=== PATIENT | male | born 1975 | race Caucasian/White ===

== ENCOUNTER 2016-11-27 01:12 | Emergency (ER) | payer OTHER ==
[~2016-11-27] VITALS: Ht 172.7 cm; Wt 93.3 kg
[~2016-11-27 01:12] MED LIST: CEPH500C PO; INSPMPHMLG; LISI5TAB3 PO; LOVA40TA4 PO; LRT5 PO
[2016-11-27 01:15] VITALS: TEMP 36.7; Ht 172.7 cm; Wt 93.3 kg
[2016-11-27] MEDS ORDERED: INSULIN GLARGINE SOLOSTAR 100 UNITS/ML 3 ML PEN SC STA (01:30)
--- NOTE | 2016-11-27 01:41 | EMERGENCY ROOM VISIT NOTE ---
History Report prepared by Jane: Swapnil Lynch Under the Supervision of: Dr. Hayes Herrera M.D. First contact with patient: 01:24 Chief Complaint: REFERRED BY DOCTOR Stated Complaint: INSULIN PUMP History of Present Illness The patient is a 41 year old male who presents to the Emergency Room for insulin after his insulin pump earlier tonight. The patient tried taking the battery out, which still has not worked. A new pump is being sent to the patient. which he will be receiving tomorrow. The patient is here for insulin to get him through the morning when he can see his PCP. The patient is otherwise feeling good. He denies fevers, rhinorrhea, or cough. Source of History: patient Onset: tonight Position: other (insulin pump) Quality: other (insulin pump malfunction) Associated Symptoms: No cough, No fevers Review of Systems See HPI for pertinent positives & negatives. A total of 6 systems reviewed and were otherwise negative. Past Medical & Surgical Medical Problems: (1) IDDM (insulin dependent diabetes mellitus) Family History No pertinent family history Social History Smoking Status: Never Smoker Current/Historical Medications Scheduled Cephalexin Monohydrate (Keflex), 500 MG PO QID Hydrocodone/Acetaminophen 5MG/500MG (Vicodin 5MG/500MG), 1 TAB PO Q4-6HR PRN Lisinopril (Zestril), 5 MG PO DAILY Lovastatin (Mevacor), 40 MG PO DAILY Miscellaneous Medications Insulin Human Lispro (Insulin Humalog Pump ) Allergies Coded Allergies: No Known Allergies (Verified Allergy, Unknown, 09/15/05) Physical Exam Vital Signs Date Time Temp Pulse Resp B/P Pulse Ox O2 Delivery O2 Flow Rate FiO2 11/27/16 01:54 82 20 151/98 97 11/27/16 01:15 36.7 90 18 132/91 97 Room Air Physical Exam GENERAL: Patient is well appearing and in no acute distress. EXTREMITIES: Normal motion all extremities, no cyanosis, no edema. NEUROLOGIC: Alert and oriented, no acute motor or sensory deficits, no focal weakness, cranial nerves grossly intact. Medical Decision & Procedures ED Course 0123: The patient was evaluated in room B11b. A complete history and physical exam was performed. 0130: Insulin Glargine 20 unit SC. 0145: Spoke with the patient. He is ready for discharge. Medical Decision 41 yr old male arrives requesting long acting Lantus insulin as his Medtronic Insulin pump is broken. Plenty of fast acting insulin at home. He is well prepared to monitor glucose at home. No other complaints nor requests. Denies infectious symptoms. Impression Primary Impression: Mechanical breakdown of insulin pump Scribe Attestation The scribe's documentation has been prepared under my direction and personally reviewed by me in its entirety. I confirm that the note above accurately reflects all work, treatment, procedures, and medical decision making performed by me. Departure Information Dispostion Home / Self-Care Referrals Pro,Med Wallace M.D. (PCP) Forms HOME CARE DOCUMENTATION FORM, IMPORTANT VISIT INFORMATION Patient Instructions A Signature Page, [facility] Additional Instructions Monitor your blood sugars closely over next 12-24 hours. Return if concerns or other issues.
[2016-11-27 01:54] VITALS: BP 151/98; PULSE 82; O2SAT 97
== END 2016-11-27 01:56 | disposition home or self-care (01) ==
LOC: C.EDB 01:13
DX: T85.614A Breakdown (mechanical) of insulin pump, initial encounter (principal); Y80.1 Therapeutic (nonsurgical) and rehabilitative physical medicine devices associated with adverse incidents; Z79.4 Long term (current) use of insulin; E11.9 Type 2 diabetes mellitus without complications; Z79.899 Other long term (current) drug therapy

== ENCOUNTER → 2017-12-08 | Outpatient (CLI) | payer OTHER ==
[2017-12-08 15:59] LABS: HEMOGLOBIN A1C 10.9 % (4.5-5.6)
[2017-12-08 16:09] LABS: ALBUMIN 3.6 gm/dl (3.4-5.0); ALT/SGPT 29 U/L (12-78); AST/SGOT 12 U/L (15-37); BLOOD UREA NITROGEN 22 mg/dl (7-18); CALCIUM 8.8 mg/dl (8.5-10.1); CARBON DIOXIDE 28 mmol/L (21-32); CREATININE 1.27 mg/dl (0.60-1.40); GLUCOSE 134 mg/dl (70-99); POTASSIUM 3.7 mmol/L (3.5-5.1); SODIUM 140 mmol/L (136-145)
[2017-12-08 16:20] LABS: ALKALINE PHOSPHATASE 82 U/L (45-117); CHOLESTEROL 265 mg/dl (0-200); TOTAL PROTEIN 7.2 gm/dl (6.4-8.2)
== END | disposition home or self-care (01) ==
LOC: C.LAB1850 14:14
PROVIDERS: ATTEND Internal Medicine Endocrinology, Diabetes & Metabolism
DX: E03.9 Hypothyroidism, unspecified (principal); E06.3 Autoimmune thyroiditis; E78.5 Hyperlipidemia, unspecified; R80.9 Proteinuria, unspecified; I10 Essential (primary) hypertension; E66.9 Obesity, unspecified; E11.9 Type 2 diabetes mellitus without complications; E11.21 Type 2 diabetes mellitus with diabetic nephropathy; E55.9 Vitamin D deficiency, unspecified

== ENCOUNTER 2024-12-29 08:52 | Inpatient (IN) ==
--- NOTE | 2024-12-16 14:39 | Anesthesiology Consultation ---
Date of Service December 16, 2024 History Surgery Operation Date: 12/29/24 09:10 Proposed Procedures p Esophagogastroduodenoscopy Dr. Dimitri Mosley MD Height/Weight Height: 5 ft 8 in Weight: 97.522 kg Allergies Allergy/AdvReac Type Severity Reaction Status Date / Time No Known Allergies Allergy Unknown Verified 12/02/24 14:37 Medications Home Medications Medication Instructions Recorded Confirmed Last Taken colchicine 0.6 mg capsule 0.6 mg PO BID PRN Gout #60 caps 08/15/20 12/16/24 Unknown aspirin 81 mg tablet,delayed 81 mg PO QAM 01/24/23 12/16/24 05/04/23 release fexofenadine 180 mg tablet 180 mg PO QAM 01/24/23 12/16/24 05/04/23 blood sugar diagnostic (Accu-Chek #200 ea 08/03/24 12/02/24 Unknown Guide test strips) blood-glucose sensor (Dexcom G7 #9 ea 08/03/24 12/02/24 Unknown Sensor device) calcitriol 0.25 mcg capsule 0.25 mcg PO DAILY #90 caps 08/03/24 12/16/24 Unknown insulin aspart U-100 100 unit/mL 200 unit (2 mL) continuous 08/03/24 12/16/24 Unknown subcutaneous solution (Novolog subcutaneous infusion DAILY #180 mL U-100 Insulin aspart) lisinopril 40 mg tablet 40 mg PO DAILY #90 tabs 08/03/24 12/16/24 Unknown rosuvastatin 40 mg tablet 40 mg PO DAILY #90 tabs 08/03/24 12/16/24 Unknown spironolactone 50 mg tablet 50 mg PO DAILY #90 tabs 08/03/24 12/16/24 Unknown (Aldactone) insulin lispro 100 unit/mL 200 unit (2 mL) continuous 10/04/24 12/16/24 Unknown subcutaneous solution (Humalog subcutaneous infusion DAILY #180 mL U-100 Insulin) amlodipine 5 mg tablet 5 mg PO DAILY #90 tabs 11/22/24 12/16/24 Unknown bempedoic acid 180 mg tablet 180 mg PO DAILY #90 tabs 11/22/24 12/16/24 Unknown (Nexletol) levothyroxine 125 mcg tablet 125 mcg PO DAILY #90 tabs 11/22/24 12/16/24 Unknown Past Medical History Medical History (Updated 12/16/24 @ 11:33 by Ellie Garcia, RN) CKD (chronic kidney disease), stage III Diabetic retinopathy Gout Dyslipidemia Hypothyroidism HTN (hypertension) Depression Diabetic neuropathy Vitamin D deficiency Diabetes CAD (coronary artery disease) CAC 99, all LAD Male erectile disorder of organic origin Seasonal allergies Hx of undescended testicle Snores no sleep study Past Family History Family History Other Diabetes Hypertension Denies family history of Ovarian cancer Prostate cancer Myocardial infarction Breast cancer Colorectal cancer Past Surgical History Surgical History Hx of tympanostomy tubes Hx of wisdom tooth extraction Social History Smoking Status: Never smoker Do You Dip or Chew Tobacco: No Hx Alcohol Use: No Hx Substance Use: No substance use type: does not use
[2024-12-29] MEDS: SODIUM CHLORIDE 0.9% 500 ML IV SCH (09:14)
--- NOTE | 2024-12-29 09:35 | History & Physical Report ---
Date of Service December 29, 2024 Assessment & Plan (1) Early satiety: Plan: Patient complains of abdominal fullness early satiety. There is a fair amount of carbonated beverage intake sometimes up to 5 to 6 cans. This could contribute to abdominal fullness and distention. Recommend trial off. Patient is lactose intolerant and avoids lactose. There is an increased risk of celiac disease and type 1 diabetes. Will evaluate the duodenum for evidence of celiac today. The concern here is for gastroparesis in this gentleman with peripheral neuropathy. We will evaluate for retained vegetable material in the stomach today. He does not vomit. Risks of the procedure including bleeding perforation and aspiration discussed. Informed consent obtained. (2) Diabetic neuropathy: (3) Diabetes type 1, controlled: History of Present Illness Chief Complaint: Early satiety Primary Care Provider: Marcia Mckeon PA-C Type I diabetic. With peripheral neuropathy. Notes early satiety fullness. No vomiting. Concern for gastroparesis. No unexplained weight loss. Patient currently on no promotility agents. He does not take any GLP-1 agonist. Allergies Allergy/AdvReac Type Severity Reaction Status Date / Time No Known Allergies Allergy Unknown Verified 12/29/24 09:00 Home Medications Medication Instructions Recorded Confirmed Type colchicine 0.6 mg capsule 0.6 mg PO BID PRN Gout #60 caps 08/15/20 12/29/24 Rx aspirin 81 mg tablet,delayed 81 mg PO QAM 01/24/23 12/29/24 History release fexofenadine 180 mg tablet 180 mg PO QAM 01/24/23 12/29/24 History blood sugar diagnostic (Accu-Chek #200 ea 08/03/24 12/02/24 Rx Guide test strips) blood-glucose sensor (Dexcom G7 #9 ea 08/03/24 12/02/24 Rx Sensor device) calcitriol 0.25 mcg capsule 0.25 mcg PO DAILY #90 caps 08/03/24 12/29/24 Rx insulin aspart U-100 100 unit/mL 200 unit (2 mL) continuous 08/03/24 12/29/24 Rx subcutaneous solution (Novolog subcutaneous infusion DAILY #180 mL U-100 Insulin aspart) lisinopril 40 mg tablet 40 mg PO DAILY #90 tabs 08/03/24 12/29/24 Rx rosuvastatin 40 mg tablet 40 mg PO DAILY #90 tabs 08/03/24 12/29/24 Rx spironolactone 50 mg tablet 50 mg PO DAILY #90 tabs 08/03/24 12/29/24 Rx (Aldactone) insulin lispro 100 unit/mL 200 unit (2 mL) continuous 10/04/24 12/29/24 Rx subcutaneous solution (Humalog subcutaneous infusion DAILY #180 mL U-100 Insulin) amlodipine 5 mg tablet 5 mg PO DAILY #90 tabs 11/22/24 12/29/24 Rx bempedoic acid 180 mg tablet 180 mg PO DAILY #90 tabs 11/22/24 12/29/24 Rx (Nexletol) levothyroxine 125 mcg tablet 125 mcg PO DAILY #90 tabs 11/22/24 12/29/24 Rx Past Med/Surg History Problem List (Updated 12/29/24 @ 09:34 by Jian Mosley MD) Early satiety CAD (coronary atherosclerotic disease) (~2023) CAC 99, all LAD Diabetes type 1, controlled Loss of protective sensation of skin of foot Proliferative diabetic retinopathy associated with type 1 diabetes mellitus Chronic renal disease, stage 3, moderately decreased glomerular filtration rate (GFR) between 30-59 mL/min/1.73 square meter Frozen shoulder (Chronic) Dysesthesia (Chronic) Diabetic peripheral neuropathy associated with type 1 diabetes mellitus (Chronic) Gout (Chronic) Dyslipidemia (Chronic) Hypothyroidism (Chronic) Hypertension (Chronic) Depression (Chronic) Albuminuria (Chronic) Diabetic nephropathy associated with type 1 diabetes mellitus (Chronic) Vitamin D deficiency (Chronic) Medical History (Updated 12/29/24 @ 09:34 by Jian Mosley MD) CKD (chronic kidney disease), stage III Diabetic retinopathy Gout Dyslipidemia Hypothyroidism HTN (hypertension) Depression Diabetic neuropathy Vitamin D deficiency Diabetes CAD (coronary artery disease) CAC 99, all LAD Male erectile disorder of organic origin Seasonal allergies Hx of undescended testicle Snores no sleep study Surgical History Hx of tympanostomy tubes Hx of wisdom tooth extraction Family History Other Diabetes Hypertension Denies family history of Ovarian cancer Prostate cancer Myocardial infarction Breast cancer Colorectal cancer Social History Smoking Status: Never smoker Second Hand Exposure: No; Do You Dip or Chew Tobacco: No; Tobacco Cessation Education Requested by Patient: No Hx Alcohol Use: No Hx Substance Use: No Preferred Language: Turkmen Communication Ability: Effective Visual Impairment: No Limitations Hearing Ability: Normal Social Worker Delinquency Prevention Required: No Beliefs That Will Affect Care: None marital status: Current Living Situation: Spouse current occupational status: employed current occupation: building maintenance engineer Other Information That Helps Us Care for You: No Feels Safe at Home: Yes Safety Concerns: Feels Safe At This Time Childhood Exposure to Second-Hand Smoke: No Dental Care, Regularly: Yes Physical Activity Frequency: 1-2 Times per Week Seatbelt Use: always Sunscreen Use: Yes Assistive Devices: Glasses Review of Systems Denies fevers chills night sweats Respiratory cardiovascular negative GI as mentioned history presenting Physical Exam Physical Exam: Pleasant 49-year-old gentleman. Alert and orientated Chest and heart sounds per anesthesia Abdomen protuberant but benign. Results & Data Vital Signs (Past 12 Hours) Vital Signs Temp Pulse Resp BP Pulse Ox O2 Del Method 12/29/24 09:05 36.1 C L 70 16 151/83 H 97 Room Air Coding Level of Care Code None Diagnoses Early satiety R68.81 Diabetic neuropathy E11.40 Diabetes type 1, controlled E10.9
[2024-12-29] MEDS ORDERED: PANTOPRAZOLE BOLUS/DRIP IV STA (10:04)
--- NOTE | 2024-12-29 10:13 | GI REPORT ---
[facility] Patient: FAVIO BRANCH : 1975 Sex at : Male Age: 49 Years Procedure: Upper GI endoscopy Date: 12/29/2024 Attending Physician: Jian Mosley MD Referring MD: Marcia Mckeon Indications: - Early satiety, possible gastroparesis Medications: - Monitored Anesthesia Care Complications: - No immediate complications. Estimated Blood Loss: - Estimated blood loss was minimal. Procedure: - The EGD scope was introduced through the mouth and advanced to the second part of the duodenum. - The upper GI endoscopy was accomplished without difficulty. - The patient tolerated the procedure well. Findings: - The examined esophagus was normal. - One oozing cratered gastric ulcer with a visible vessel was found in the gastric antrum. The lesion was 30 mm in largest dimension. Surrounding ulcer injected with 1 in 10,000 epinephrine. The visible vessel lavage with slow continued ooze. Treated with BiCap coagulation with achievement of hemostasis ulcer edges then biopsied x 5 for histology - The examined duodenum was normal. Impression: - Normal esophagus. - Oozing gastric ulcer with a visible vessel. - Surrounding ulcer injected with 1 in 10,000 epinephrine. The visible vessel lavage with slow continued ooze. Treated with BiCap coagulation with achievement of hemostasis ulcer edges then biopsied x 5 for histology - Normal examined duodenum. - No specimens collected. Recommendation: - Await pathology results. - IV Protonix with drip. - 23-hour observation post coagulation of visible vessel and bleeding. Reviewed with hospitalist service. Patient has numerous comorbidities including type 1 diabetes which will require hospitalist services. Procedure Code(s): - 07794, Esophagogastroduodenoscopy, flexible, transoral; diagnostic, including collection of specimen(s) by brushing or washing, when performed (separate procedure) Diagnosis Code(s): - K25.4, Chronic or unspecified gastric ulcer with hemorrhage CPT(R) - 202 copyright [employer]. All Rights Reserved. The CPT codes, CCI edits and ICD codes generated are intended as suggestions and were generated based on input data. These codes are preliminary and upon director food and beverage review may be revised to meet current compliance and payer requirements. The provider is responsible for the final determination of appropriate codes, and modifiers. Jian Mosley MD This document has been electronically signed. Note Initiated:12/29/2024 Note Completed:12/29/2024 10:12 AM [id number]
--- NOTE | 2024-12-29 10:16 | Anesthesiology Progress Note ---
Date of Service December 29, 2024 Anesthesia Post Procedure Vital Signs Vital Signs: Temp Pulse Resp BP Pulse Ox O2 Del Method 12/29/24 09:05 36.1 C L 70 16 151/83 H 97 Room Air Transfer of Care Handoff Completed per policy Notes Mental Status: alert / awake / arousable and participated in evaluation Patient Amnestic to Procedure: Yes Nausea / Vomiting: adequately controlled Pain: adequately controlled Airway Patency, RR, SpO2: stable & adequate BP & HR: stable & adequate Hydration State: stable & adequate Anesthetic Complications: no major complications apparent and Pt Satisfied with anesthetic care
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
[2024-12-29] MEDS: PANTOprazole 80 MG in DEXTROSE 5% 100 ML IV ONE (10:51)
[2024-12-29] MEDS: PANTOprazole 40 MG in DEXTROSE 5% MINI-B 100 ML IV SCH (11:09)
[2024-12-29] MEDS ORDERED: INSULIN, Rapid-Acting PUMP SC SCH (12:02)
[2024-12-29] MEDS ORDERED: GLUCAGON FOR INJ 1 MG VIAL SQ PRN (12:02)
[2024-12-29] MEDS ORDERED: GLUCOSE 10 TAB/TUBE PO PRN (12:02)
[2024-12-29] MEDS ORDERED: GLUCOSE 40% GEL 15 GM TUBE PO PRN (12:02)
[2024-12-29] MEDS ORDERED: CARBOHYDRATES FOR HYPOGLYCEMIA PO PRN (12:02)
[2024-12-29] MEDS ORDERED: DEXTROSE 50% 50 ML SYRINGE IV PRN (12:02)
[2024-12-29] MEDS ORDERED: INSULIN ASPART 100 UNITS/ML VIAL SC PRN (12:02)
[2024-12-29 12:24] LABS: Basophils # (auto) 0.03 K/uL (0.00-0.20); Basophils % (auto) 0.5 %; Eosinophils # (auto) 0.17 K/uL (0.00-0.50); Hematocrit (blood only) 34.2 % (42.0-52.0); Hemoglobin 11.5 g/dl (14.0-18.0); Immature Granulocytes # (auto) 0.03 K/uL (0.01-0.20); Immature Granulocytes % (auto) 0.5 %; Lymphocytes # (auto) 1.33 K/uL (1.20-3.40); Lymphocytes % (auto) 23.5 %; Mean Corpuscular Hemoglobin 28.6 pg (25.0-34.0); Mean Corpuscular Hgb Conc 33.6 g/dL (32.0-36.0); Mean Corpuscular Volume 85.1 fL (80.0-100.0); Mean Platelet Volume 8.7 fL (9.4-12.4); Monocytes # (auto) 0.42 K/uL (0.11-0.59); Monocytes % (auto) 7.4 %; Neutrophils # (auto) 3.68 K/uL (1.40-6.50); Neutrophils % (auto) 65.1 %; Platelet Count 212 K/uL (130-400); RDW Coefficient of Variation 12.5 % (11.5-14.5); RDW Standard Deviation 38.5 fL (36.4-46.3); Red Blood Count 4.02 M/uL (4.70-6.10); White Blood Count 5.66 K/ul (4.8-10.8)
[2024-12-29] MEDS: LIDOCAINE 2% 2 ML VIAL/AMP(20MG/ML) INFIL ONE (12:31)
[2024-12-29] MEDS: PROPOFOL IV EMULSION 10 MG/ML 20 ML VIAL IV ONE ×2 (12:31→12:32)
[2024-12-29 12:40] LABS: Albumin Globulin Ratio 1.4 (0.9-2); Bilirubin,Total 0.6 mg/dl (0.2-1.0); Calcium 9.3 mg/dl (8.6-10.3); Creatinine Clr Calc Pharmacy 85.1 ml/min; Globulin 2.8 gm/dl (2.5-4.0); Potassium 4.3 mmol/L (3.5-5.1); Total Protein 6.8 gm/dl (6.0-8.3)
[2024-12-29 12:46] LABS: Partial Thromboplastin Ratio 1.3; Partial Thromboplastin Time 34 Seconds (21-31); Prothrombin Time 10.9 Seconds (9.0-12.0)
--- NOTE | 2024-12-29 15:42 | Communication Note ---
Date of Service: December 29, 2024 Follow-up post endoscopy. Patient denies any abdominal pain. There is been no nausea vomiting or passage of black stools. Patient will be on clears. If his hemoglobin stable tomorrow can advance diet discharge home. Should go on twice daily PPI for at least a month. Then can go to 40 mg of Protonix per day. Should have a repeat EGD in 3 months. I believe the ulcer is related to ibuprofen. Check for H. pylori. Neoplasia less likely.
[2024-12-29] MEDS: ROSUVASTATIN CALCIUM 20 MG TAB PO SCH (20:23)
[2024-12-29 22:13] LABS: Hematocrit (blood only) 33.6 % (42.0-52.0); Hemoglobin 11.4 g/dl (14.0-18.0); Mean Corpuscular Hemoglobin 28.1 pg (25.0-34.0); Mean Corpuscular Hgb Conc 33.9 g/dL (32.0-36.0); Mean Platelet Volume 8.7 fL (9.4-12.4); Platelet Count 208 K/uL (130-400); RDW Coefficient of Variation 12.8 % (11.5-14.5); RDW Standard Deviation 38.5 fL (36.4-46.3); Red Blood Count 4.05 M/uL (4.70-6.10); White Blood Count 5.44 K/ul (4.8-10.8)
[2024-12-29 23:58] VITALS: PULSE 69; RESP 15
[2024-12-30 05:45] VITALS: BP 115/71; TEMP 97.7; O2SAT 97
[2024-12-30] MEDS: LEVOTHYROXINE SODIUM 125 MCG TABLET PO SCH (05:45)
[2024-12-30 06:37] LABS: Basophils # (auto) 0.03 K/uL (0.00-0.20); Basophils % (auto) 0.5 %; Eosinophils # (auto) 0.16 K/uL (0.00-0.50); Eosinophils % (auto) 2.8 %; Hematocrit (blood only) 34.9 % (42.0-52.0); Hemoglobin 11.7 g/dl (14.0-18.0); Immature Granulocytes # (auto) 0.02 K/uL (0.01-0.20); Immature Granulocytes % (auto) 0.4 %; Lymphocytes # (auto) 1.37 K/uL (1.20-3.40); Lymphocytes % (auto) 24.1 %; Mean Corpuscular Hgb Conc 33.5 g/dL (32.0-36.0); Mean Corpuscular Volume 83.5 fL (80.0-100.0); Mean Platelet Volume 8.5 fL (9.4-12.4); Monocytes # (auto) 0.49 K/uL (0.11-0.59); Monocytes % (auto) 8.6 %; Neutrophils # (auto) 3.61 K/uL (1.40-6.50); Neutrophils % (auto) 63.6 %; Platelet Count 200 K/uL (130-400); RDW Coefficient of Variation 12.8 % (11.5-14.5); RDW Standard Deviation 38.5 fL (36.4-46.3); Red Blood Count 4.18 M/uL (4.70-6.10); White Blood Count 5.68 K/ul (4.8-10.8)
--- NOTE | 2024-12-30 06:48 | Communication Note ---
Date of Service: December 30, 2024 counts stable,bun ok. nursing notes no report bleeding. advance diet, home today on bid protonix x 2 weeks then daily. plan repeat egd 3 months. avoid nsaids
[2024-12-30 06:55] LABS: BUN Creatinine Ratio 14.6 (10-20); Calcium 9.3 mg/dl (8.6-10.3); Creatinine Clr Calc Pharmacy 74.6 ml/min; Potassium 3.8 mmol/L (3.5-5.1)
[2024-12-30] MEDS ORDERED: Nursing to Pharmacy Communication SCH (08:45)
[2024-12-30] MEDS ORDERED: lisinopril 40 MG TAB PO SCH ×2 (09:00→21:00)
[2024-12-30] MEDS ORDERED: SPIRONOLACTONE 25 MG TAB PO SCH ×2 (09:00→21:00)
[2024-12-30] MEDS ORDERED: amLODIPine BESYLATE 5 MG TAB PO SCH ×2 (09:00→21:00)
--- NOTE | 2024-12-30 09:43 | Discharge Summary ---
Discharge Summary Date of Service December 30, 2024 Principal Dx & Hospital Course #1 = Principal Diagnosis (1) Gastric ulcer: (2) Diabetes type 1, controlled: (3) Hypertension: (4) CAD (coronary atherosclerotic disease): Plan Pankaj is a 49M with a PMHx of DMT1, hypothyroidism, CK#, HTN, Depression and CAD who presented the hospital for elective EGD for gastroparesis workup. During this he was found to have an oozing gastric ulcer with a visible vessel requiring hemostasis. Patient w/ brown BM 12/30. #Gastric Ulcer Found on EGD. S/p BiCap coagulation, 5 biopsies pending. GI consulted - okay for advance to solid diet, PPI BID, okay to discharge home 12/30. Hgb stable 11.5 w/ repeat on 12/30 of 11.7 patient requires close follow up w/ GI and follow up EGD in 3 months. Avoid NSAIDs in future, patient was reportedly using ibuprofen. #DMT1 Continue insulin pump on discharge. #HTN/CAD Continue Amlodipine, rosuvastatin, spironolactone, lisinopril, and ASA hypothyroid - continue Synthroid Discharged home 12/30. Admission HPI Per Admitting Provider Pankaj is a 49M with a PMHx of DMT1, hypothroidism, CK#, HTN, Depression and CAD who presented the hospital for elective EGD for gastroparesis workup. During this he was found to have an oozing gastric ulcer with a visible vessel. He has not noticed any blood stools or black stools. No bowel changes, but does report having to strain more for bowel movements. Reports chronic fatigue without any acute worsening. He does report some epigastric abdominal pain but no acute worsening. Discharge Exam Constitutional WD/WN, vitals as above Eyes PERRL, conjunctivae normal, anicteric sclerae Respiratory breathing unlabored Cardiovascular well perfused Psychiatric A+Ox3, euthymic affect Discharge Plan Discharge Items Patient Disposition: Home - Self-Care Reason For Visit: GI BLEED Discharge Diagnosis: Gastric Ulcer Activity: Resume your previous activity Non-emergency contact: Primary Care Provider and Rotary Shear Operator Call non-emergency contact if: you have any medication questions and your symptoms worsen Follow-up/Referrals: Marcia Mckeon PA-C [Primary Care Provider] - 01/07/25 3:00 pm Diet: Carb Count or DM1 Addtl Attending Provider Instructions: Mr. Lou, You were recently hospitalized following your EGD due to a bleeding gastric ulcer in your stomach. You were treated appropriately and your blood counts have remained stable. Please see recommendations below regarding your discharge. 1. Please take Pantoprazole 40mg twice daily. Your first dose at home will be this evening 12/30. This medication should be continued until you are seen by your GI doctor in follow up. 2. Please avoid further use of NSAIDs as this contributed to your ulcer formation. 3. Please follow up in the GI office at an appointment to be scheduled. 4. Please follow up with your PCP within 1-2 weeks of discharge. If you develop any black tarry stools, severe abdominal pain, dizziness, or shortness of breath please report back to the ER for further care. Sincerely, Donna Blackmon PA-C Pending Studies at Discharge: Yes Studies:: biopsies from endoscopy Stand-Alone Forms: My [facility] [employer], Smoking Cessation Medications and DC Order Prescriptions: New pantoprazole 40 mg tablet,delayed release (DR/EC) 40 mg PO BID Qty: 60 0RF Continued colchicine 0.6 mg capsule 0.6 mg PO BID PRN (Reason: Gout) Qty: 60 0RF insulin lispro [Humalog U-100 Insulin] 100 unit/mL solution 200 unit continuous subcutaneous infusion DAILY Qty: 180 1RF Nexletol 180 mg tablet 180 mg PO DAILY Qty: 90 1RF amlodipine 5 mg tablet 5 mg PO DAILY Qty: 90 1RF levothyroxine 125 mcg tablet 125 mcg PO DAILY Qty: 90 1RF insulin aspart U-100 [Novolog U-100 Insulin aspart] 100 unit/mL solution 200 unit continuous subcutaneous infusion DAILY Qty: 180 3RF calcitriol 0.25 mcg capsule 0.25 mcg PO DAILY Qty: 90 3RF lisinopril 40 mg tablet 40 mg PO DAILY Qty: 90 3RF rosuvastatin 40 mg tablet 40 mg PO DAILY Qty: 90 3RF spironolactone [Aldactone] 50 mg tablet 50 mg PO DAILY Qty: 90 3RF aspirin 81 mg Tablet,Delayed Release (Dr/Ec) 81 mg PO QAM fexofenadine 180 mg Tablet 180 mg PO QAM No Action (DME) Accu-Chek Guide test strips Strip See Rx Instructions .Route Qty: 200 3RF Rx Instructions: test blood sugar bid (DME) Dexcom G7 Sensor Device See Rx Instructions .Route Qty: 9 3RF Rx Instructions: Change sensor every 10 days Discharge Orders: Discharge Order (Routine); Ordered 12/30/24 Ordered By: Donna Bach/Other Patient Handouts: Understanding Gastric Ulcers Admission Data Admit Date/Time: 12/29/24 10:17 Attending Provider: Richar Harvey Admit Provider: Pankaj Segal Primary Care Provider: Marcia Mckeon Other Providers: Jian Mosley Other Interventions: Discharge Summary Assessment (RN) Last Done: 12/30/24 09:56 Hospital Stay Data Consultations 12/29/24 10:58 Consult Gastroenterology Routine Procedures Performed Operation Date: 12/29/24 09:25 Actual Procedures p EGD Hemostasis - Jian Mosley MD s EGD Biopsy Cytology - Jian Mosley MD Pending Results Patient Have Any Pending Studies at Discharge: Yes Discharge Instructions Given to Patient (Per Discharging Provider) Mr. Lou, Tien were recently hospitalized following your EGD due to a bleeding gastric ulcer in your stomach. You were treated appropriately and your blood counts have remained stable. Please see recommendations below regarding your discharge. 1. Please take Pantoprazole 40mg twice daily. Your first dose at home will be this evening 12/30. This medication should be continued until you are seen by your GI doctor in follow up. 2. Please avoid further use of NSAIDs as this contributed to your ulcer formation. 3. Please follow up in the GI office at an appointment to be scheduled. 4. Please follow up with your PCP within 1-2 weeks of discharge. If you develop any black tarry stools, severe abdominal pain, dizziness, or shortness of breath please report back to the ER for further care. Sincerely, Donna Blackmon PA-C Total Time Total Time Spent Total Time Spent (In Minutes): 40 Total Time Includes: Examination of the Patient, Discharge Planning and Medication Reconciliation Coding Level of Care Code 47047 INP/OBS DISCH >30 MIN Diagnoses Gastric ulcer K25.9 Diabetes type 1, controlled E10.9 Hypertension I10 CAD (coronary atherosclerotic disease) I25.10
--- NOTE | 2024-12-30 11:35 | Gastrointestinal Consultation ---
Date of Consultation December 30, 2024 Assessment & Plan (1) Gastric ulcer: -Continue Protonix 40 mg BID on discharge -Diet advanced while hospitalized -Will need outpatient follow-up in the clinic -Avoid NSAIDs History of Present Illness Reason for Consultation: "bleeding ulcer" Requesting Physician: Donna Blackmon Attending Physician: Richar Harvey History of Present Illness Patient is a 49 yo male who underwent an EGD as an outpatient on 12/29/24 for epigastric pain. He was found to have an actively bleeding gastric ulcer. He was admitted on a PPI drip overnight. He has not had melena. His H/H is 11.7/34.9. BUN 20. Cr 1.37. He tolerated an advanced diet this AM. Allergies Allergy/AdvReac Type Severity Reaction Status Date / Time No Known Allergies Allergy Unknown Verified 12/29/24 09:00 Home Medications Medication Instructions Recorded Confirmed Type colchicine 0.6 mg capsule 0.6 mg PO BID PRN Gout #60 caps 08/15/20 12/29/24 Rx aspirin 81 mg tablet,delayed 81 mg PO QAM 01/24/23 12/29/24 History release fexofenadine 180 mg tablet 180 mg PO QAM 01/24/23 12/29/24 History blood sugar diagnostic (Accu-Chek #200 ea 08/03/24 12/02/24 Rx Guide test strips) blood-glucose sensor (Xoomsys G7 #9 ea 08/03/24 12/02/24 Rx Sensor device) calcitriol 0.25 mcg capsule 0.25 mcg PO DAILY #90 caps 08/03/24 12/29/24 Rx lisinopril 40 mg tablet 40 mg PO DAILY #90 tabs 08/03/24 12/29/24 Rx rosuvastatin 40 mg tablet 40 mg PO DAILY #90 tabs 08/03/24 12/29/24 Rx spironolactone 50 mg tablet 50 mg PO DAILY #90 tabs 08/03/24 12/29/24 Rx (Aldactone) insulin lispro 100 unit/mL 200 unit (2 mL) continuous 10/04/24 12/29/24 Rx subcutaneous solution (Humalog subcutaneous infusion DAILY #180 mL U-100 Insulin) amlodipine 5 mg tablet 5 mg PO DAILY #90 tabs 11/22/24 12/29/24 Rx bempedoic acid 180 mg tablet 180 mg PO DAILY #90 tabs 11/22/24 12/29/24 Rx (Nexletol) levothyroxine 125 mcg tablet 125 mcg PO DAILY #90 tabs 11/22/24 12/29/24 Rx Novolog U-100 Insulin aspart 100 200 unit (2 mL) continuous 12/29/24 Rx unit/mL subcutaneous solution subcutaneous infusion DAILY #180 mL (insulin aspart U-100) pantoprazole 40 mg tablet,delayed 40 mg PO BID #60 tabs 12/30/24 Rx release Patient History Medical History Gastric ulcer CKD (chronic kidney disease), stage III Diabetic retinopathy Gout Dyslipidemia Hypothyroidism HTN (hypertension) Depression Diabetic neuropathy Vitamin D deficiency Diabetes CAD (coronary artery disease) CAC 99, all LAD Male erectile disorder of organic origin Seasonal allergies Hx of undescended testicle Snores no sleep study Surgical History Hx of tympanostomy tubes Hx of wisdom tooth extraction Family History Other Diabetes Hypertension Denies family history of Ovarian cancer Prostate cancer Myocardial infarction Breast cancer Colorectal cancer Social History Smoking Status: Never smoker Second Hand Exposure: No; Do You Dip or Chew Tobacco: No; Hx Alcohol Use: No Hx Substance Use: No Preferred Language: Maori Communication Ability: Effective Visual Impairment: No Limitations Hearing Ability: Normal Senior Teller Required: No Beliefs That Will Affect Care: None marital status: Current Living Situation: Spouse current occupational status: employed current occupation: engineering associate Feels Safe at Home: Yes Childhood Exposure to Second-Hand Smoke: No Dental Care, Regularly: Yes Physical Activity Frequency: 1-2 Times per Week Seatbelt Use: always Sunscreen Use: Yes Assistive Devices: None Physical Exam Constitutional: well developed Respiratory: normal respiratory effort Psychiatric: Orientation: alert and oriented x 3 Results & Data Vital Signs (Past 12 Hours) Vital Signs Temp Pulse Resp BP Pulse Ox O2 Del Method 12/30/24 05:44 36.5 C 15 115/71 97 Room Air 12/29/24 23:57 36.9 C 69 15 139/77 94 Room Air PG Care Time/CCT Total # of Minutes Spent Total Time Spent with Patient: Total time spent is greater than 50% in coordination of care (as documented) at patient's floor/unit and/or counseling patient: Coding Level of Care Code 64826 IN/OBS CONSULT LVL 4,60M Diagnoses Gastric ulcer K25.9
== END 2024-12-30 11:16 | disposition home or self-care (01) | DRG 379 ==
LOC: ENDO 08:52 → 3E 10:17 → SUATTDRO 10:17